=== PATIENT | male | born 1970 | race Caucasian/White ===

== ENCOUNTER 2022-12-29 20:37 | Emergency (ER) | payer SELFPAY ==
[2022-12-29 20:45] VITALS: BP 132/95; PULSE 74; RESP 18; TEMP 36.6; O2SAT 100
[2022-12-30 00:27] LABS: Appearance Urine Clear (Clear); Basophils Absolute Auto 0.1 K/mm3 (0.0-0.1); Basophils Percent Auto 0.8 % (0.2-1.2); Bilirubin Urine Negative (Negative); Blood Urine Negative (Negative); Color Urine Yellow (Yellow); Eosinophils Absolute Auto 0.1 K/mm3 (0-0.3); Eosinophils Percent Auto 1.1 % (0-4.4); Glucose Urine UA Negative (Negative); Hematocrit 44.9 % (42.0-52.0); Hemoglobin 15.1 g/dL (14.0-18.0); Immature Granulocyte Absolute 0.07 K/mm3 (0.00-0.031); Immature Granulocyte Percent A 0.7 % (0-0.5); Ketones Urine Negative (Negative); Leukocyte Esterase Ur Negative LEU/UL (Negative); Lymphocytes Absolute Auto 3.84 K/mm3 (0.9-3.2); Lymphocytes Percent Auto 36.4 % (18.3-44.2); Mean Corpuscular HGB Conc 33.6 g/dl (32-36); Mean Corpuscular Hemoglobin 31.8 pg (26-34); Mean Corpuscular Volume 94.5 fl (80-100); Mean Platelet Volume 10.8 fl (7.4-10.4); Monocytes Absolute Auto 0.6 K/mm3 (0.1-0.6); Neutrophils Absolute Auto 5.8 K/mm3 (1.3-6.7); Nitrate Urine Negative (Negative); Platelet Count Result 219 k/mm3 (150-375); Protein Urine Negative (Negative); Red Blood Count 4.75 M/mm3 (4.6-6.20); Red Cell Distribution Width 12.9 % (11.5-14.5); Specific Grav Ur 1.008 (1.001-1.035); Urobilinogen Urine 0.2 mg/dL (<2.0); White Blood Count 10.6 K/mm3 (4.5-10.0)
--- NOTE | 2022-12-30 00:38 | ED.PSYCH ---
HPI - Psych General Chief Complaint: Psychiatric Symptoms <Rimma Solis PA-C - Last Filed: 12/30/22 17:15> Stated Complaint: PARANOID DELUSIONS <Rimma Solis PA-C - Last Filed: 12/30/22 17:15> Time Seen by Provider: 12/29/22 22:54 <Rimma Solis PA-C - Last Filed: 12/30/22 17:15> Source: patient <Rimma Solis PA-C - Last Filed: 12/30/22 17:15> Mode of arrival: EMS <Rimma Solis PA-C - Last Filed: 12/30/22 17:15> Limitations: no limitations <Rimma Solis PA-C - Last Filed: 12/30/22 17:15> History of Present Illness HPI Narrative: This is a 52-year-old male that presents to the emergency department for psychiatric evaluation. Patient reports he has history of schizophrenia. He has been out of his medications for a while. He does not currently have a doctor. Reports thoughts of hurting others. Does report previous psychiatric hospitalizations. Was reported to be paranoid by EMS. Denies thoughts of self-harm, visual or auditory hallucinations. <Rimma Solis PA-C - Last Filed: 12/30/22 17:15> Review of Systems Review of Systems: CONSTITUTIONAL: Denies fever CARDIOVASCULAR: Denies chest pain GASTROINTESTINAL: Denies abdominal pain PSYCHIATRIC: Reports depression. <Rimma Solis PA-C - Last Filed: 12/30/22 17:15> All systems reviewed & are unremarkable except as noted in HPI and below <Rimma Solis PA-C - Last Filed: 12/30/22 17:15> COUNT INCLUDES THE [facility] Past Medical History Medical History: Medical History (Updated 12/30/22 @ 03:08 by Rimma Solis PA-C) History of schizophrenia <Rimma Solis PA-C - Last Filed: 12/30/22 17:15> Social History Social History: Social History (Updated 12/30/22 @ 00:41 by Rimma Solis PA-C) Smoking status: Never smoker <Rimma Solis PA-C - Last Filed: 12/30/22 17:15> Exam Narrative: GENERAL: Well-appearing, well-nourished, and in no acute distress. HEAD: Normocephalic, atraumatic. EYES: EOMI. CHEST: No respiratory distress. HEART: Regular rate EXTREMITIES: Normal range of motion. No edema. SKIN: Warm, dry, no rash. NEURO: No focal deficits. Alert and oriented x3. PSYCH: Normal mood and affect <Rimma Solis PA-C - Last Filed: 12/30/22 17:15> Course Course Emergency Course: Patient is medically cleared for evaluation by crisis <Rimma Solis PA-C - Last Filed: 12/30/22 17:15> Patient is medically cleared for evaluation by crisis 0958: Accepted to [facility] by Dr. Marte. Patient stable. <Yuriy Kauffman MD - Last Filed: 12/30/22 09:59> Vital Signs Vital signs: Vital Signs Temperature 97.8 F 12/29/22 20:45 Pulse Rate 74 12/29/22 20:45 Respiratory Rate 18 12/29/22 20:45 Blood Pressure 132/95 H 12/29/22 20:45 Pulse Oximetry 100 12/29/22 20:45 Oxygen Delivery Room Air 12/29/22 20:45 Temperature 97.8 F 12/29/22 20:45 Pulse Rate 80 12/30/22 09:16 Respiratory Rate 16 12/30/22 09:16 Blood Pressure 140/84 12/30/22 09:16 Pulse Oximetry 99 12/30/22 09:16 Oxygen Delivery Room Air 12/29/22 20:45 <Rimma Solis PA-C - Last Filed: 12/30/22 17:15> Vital Signs Temperature 97.8 F 12/29/22 20:45 Pulse Rate 74 12/29/22 20:45 Respiratory Rate 18 12/29/22 20:45 Blood Pressure 132/95 H 12/29/22 20:45 Pulse Oximetry 100 12/29/22 20:45 Oxygen Delivery Room Air 12/29/22 20:45 Temperature 97.8 F 12/29/22 20:45 Pulse Rate 80 12/30/22 09:16 Respiratory Rate 16 12/30/22 09:16 Blood Pressure 140/84 12/30/22 09:16 Pulse Oximetry 99 12/30/22 09:16 Oxygen Delivery Room Air 12/29/22 20:45 <Yuriy Kauffman MD - Last Filed: 12/30/22 09:59> MDM - Psych MDM Narrative Medical decision making narrative: Patient presents to the emergency department for psychiatric evaluation. Reports history of schizophrenia. Reports he is not currently on his medications. Reports aida
[2022-12-30 00:46] LABS: Ethanol < 10 mg/dL (<10)
[2022-12-30 00:47] LABS: Alanine Aminotransferase 35 U/L (6-50); Albumin Level 4.3 g/dL (3.5-5.1); Alkaline Phosphatase 71 U/L (38-126); Anion Gap 5 mmol/L (8-16); Aspartate Amino Transferase 27 U/L (17-59); Bilirubin,Total 0.6 mg/dL (0.2-1.3); Blood Urea Nitrogen 9 mg/dL (9-20); Calcium 9.4 mg/dL (8.4-10.2); Carbon Dioxide 29 mmol/L (22-30); Chloride 101 mmol/L (98-107); Estimated CRCL calculation 121 ml/min; Estimated Glomerular Filt Rate > 60; Glucose 103 mg/dL (65-110); Potassium 3.8 mmol/L (3.4-5.0); Sodium 135 mmol/L (137-145)
[2022-12-30 00:57] LABS: Add Urine Microscopic? NO
[2022-12-30 00:59] LABS: Amphetamine Screen Urine Negative (Negative); Barbiturate Screen Urine Negative (Negative); Benzodiazepines Screen Urine Negative (Negative); Cannabinoid Screen Urine Negative (Negative); Cocaine Screen Urine Negative (Negative); Methadone Screen Urine Negative (Negative); Opiate Screen Urine Negative (Negative); Phencyclidine Screen Urine Negative (Negative)
--- NOTE | 2022-12-30 02:19 | PC.NURSE ---
Pt sleeping quietly per cart at this time in NAD
[2022-12-30 03:07] LABS: Influenza A QL RT-PCR Negative (Negative); Influenza B QL RT-PCR Negative (Negative); RSV RNA, RT-PCR Negative (Negative); SARS-CoV-2 RNA PCR Negative (Negative)
--- NOTE | 2022-12-30 03:13 | PC.NURSE ---
Crisis notified of pt.
--- NOTE | 2022-12-30 04:41 | PC.NURSE ---
Crisis at bedside.
--- NOTE | 2022-12-30 06:52 | PC.NURSE ---
Per crisis, chart has been sent to [facility], and [facility].
--- NOTE | 2022-12-30 07:17 | PC.NURSE ---
Report to MAXIME Galvez
[2022-12-30 08:28] VITALS: BP 137/84; PULSE 81; RESP 18; O2SAT 95
--- NOTE | 2022-12-30 08:31 | PC.NURSE ---
This RN spoke with Mary Jo with [facility] and was informed that pt was being accepted and that she would call back with the accepting physician and room number
[2022-12-30 09:16] VITALS: BP 140/84; PULSE 80; RESP 16; O2SAT 99
== END 2022-12-30 10:11 ==
PROVIDERS: Physician Assistant; Emergency Provider Emergency Medicine
DX: F20.9 Schizophrenia, unspecified (principal); Z20.822 Contact with and (suspected) exposure to COVID-19
CPT/HCPCS: 36415; 80053; 80307; 81003; 84443; 85025; 87637; 99285